=== PATIENT | female | born 1990 | race Caucasian/White ===

== ENCOUNTER → 2019-09-17 | Outpatient (CLI) | payer BC | END | disposition home or self-care (01) | LOC: LABWHC1 09:09 | PROVIDERS: ATTEND Internal Medicine Sleep Medicine | DX: G47.419 Narcolepsy without cataplexy (principal) | CPT/HCPCS: 36415 ==

== ENCOUNTER → 2020-01-05 | Outpatient (CLI) | payer BC ==
[2020-01-05 17:01] LABS: Ferritin 101.2 ng/mL (10.0-291.0)
[2020-01-05 17:56] LABS: C Reactive Protein <0.4 mg/dL (0.0-0.8)
[2020-01-06 04:07] LABS: EBV - VCA IgM 29.8 U/mL (<36.0)
== END | disposition home or self-care (01) ==
LOC: LABWHC1 07:19
PROVIDERS: ATTEND Psychiatry & Neurology Neurology
DX: R53.83 Other fatigue (principal)
CPT/HCPCS: 36415; 82306; 82607; 82728; 84436; 84439; 84443; 84480; 84481; 85652; 86038; 86140; 86618; 86665; 86780

== ENCOUNTER → 2020-06-12 | Outpatient (CLI) | payer BC ==
[2020-06-12 17:17] LABS: EBV-EA (IgG) <0.2 AI; EBV-EBNA(IgG) 7.1 AI; EBV-VCA (IgG) >8.0 AI; EBV-VCA (IgM) 1.6 AI
== END | disposition home or self-care (01) ==
LOC: LABWHC1 08:55
PROVIDERS: ATTEND Physician Assistant Medical
DX: E55.9 Vitamin D deficiency, unspecified (principal); R53.83 Other fatigue
CPT/HCPCS: 36415; 82306; 82652; 84436; 86663; 86664; 86665